=== PATIENT | male | born 2000 | race Hispanic/Latino ===

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

== ENCOUNTER 2018-11-22 22:01 | Emergency (ER) | payer OTHER ==
[2018-11-22] MEDS ORDERED: ACETAMINOPHEN 325 MG TAB ONE (22:22)
[2018-11-22 22:45] LABS: RAPID GROUP A STREP NEGATIVE (NEGATIVE)
[2018-11-22] MEDS ORDERED: DEXAMETHASONE SOD PHOSPHATE 10MG/ML 1ML VIAL ONE (23:22)
[2018-11-22] MEDS ORDERED: KETOROLAC TROMETHAMINE 60 MG/2 ML VIAL ONE (23:22)
== END 2018-11-22 23:50 | disposition home or self-care (01) ==
LOC: EDH 22:01
DX: J02.9 Acute pharyngitis, unspecified (principal); Z88.2 Allergy status to sulfonamides
CPT/HCPCS: 87804 ×2; 87880; 96372 ×2; 99284; J1100; J1885